=== PATIENT | female | born 1970 | race Two or more races ===

== ENCOUNTER 2017-08-21 09:42 | Emergency (ER) | payer MEDICAID, OTHER ==
[~2017-08-21] VITALS: Ht 152.4 cm; Wt 62.4 kg
[~2017-08-21 09:42] MED LIST: CEFD300C37 PO; IBUP200T49; OMEP20TA62 PO; ONDA4TAB10 PO
[2017-08-21 09:46] VITALS: BP 128/84
[2017-08-21] MEDS ORDERED: CEFTRIAXONE 1,000 MG ONE (10:56)
[2017-08-21] MEDS ORDERED: LIDOCAINE-MPF 1%, 5ML ONE (10:57)
[2017-08-21] MEDS ORDERED: CEFTRIAXONE 1,000 MG IM ONE (11:00)
== END 2017-08-21 11:12 | disposition home or self-care (01) ==
LOC: ED 11:10
DX: J02.0 Streptococcal pharyngitis (principal)
CPT/HCPCS: 96372; 99283; J0696

== ENCOUNTER 2017-10-14 18:15 | Inpatient (IN) | payer MEDICAID, OTHER ==
[~2017-10-14] VITALS: Ht 152.4 cm; Wt 55.0 kg
[2017-10-14 18:12] VITALS: BP 101/65
[2017-10-14] MEDS ORDERED: ONDANSETRON 2MG/ML, 2ML ONE (18:53)
[2017-10-14] MEDS ORDERED: HYDROmorphone 2 MG/ML, 1ML ONE (18:54)
[2017-10-14 18:56] LABS: BASOPHILS # (AUTO) 0.02 x10^3/uL (0-0.1); BASOPHILS % (AUTO) 0 % (0-1); EOSINOPHILS % (AUTO) 0 % (1-7); LYMPHOCYTES # (AUTO) 1.24 x10^3/uL (1-3.4); LYMPHOCYTES % (AUTO) 13 % (22-44); MD NO; MEAN CORPUSCULAR HEMOGLOBIN 27.9 pg (27.0-34.8); MEAN CORPUSCULAR HGB CONC 34.1 g/dL (32.4-35.8); MEAN CORPUSCULAR VOLUME 81.6 fL (80-100); MEAN PLATELET VOLUME 8.2 fL (7.4-10.4); MONOCYTES # (AUTO) 0.68 x10^3/uL (0.2-0.8); MONOCYTES % (AUTO) 7 % (2-9); NEUTROPHILS # (AUTO) 7.37 x10^3/uL (1.8-6.8); NEUTROPHILS % (AUTO) 79 % (42-75); PLATELET COUNT 234 x10^3/uL (130-400); RED CELL DISTRIBUTION WIDTH 13.3 % (9.6-15.2)
[2017-10-14] MEDS ORDERED: SODIUM CHLORIDE FLUSH 10ML SYR IVF ONE (19:00)
[2017-10-14] MEDS ORDERED: HYDROmorphone 1 MG/ML, 1ML IVPush PRN (19:00)
[2017-10-14] MEDS ORDERED: ONDANSETRON ODT 4 MG PO ONE (19:00)
[2017-10-14 19:06] LABS: ALANINE AMINOTRANSFERASE 25 U/L (12-78); ALBUMIN 3.6 g/dL (3.4-5.0); ANION GAP 8 mmol/L (5-15); CALCIUM 9.4 mg/dL (8.5-10.1); CHLORIDE 107 mmol/L (98-107)
[2017-10-14 19:09] LABS: ALKALINE PHOSPHATASE 207 U/L (45-117); BILIRUBIN,TOTAL 0.7 mg/dL (0.2-1.0); CREATININE 0.46 mg/dL (0.55-1.02)
[2017-10-14] MEDS ORDERED: ACETAMINOPHEN 500 MG TABLET ONE (19:15)
[2017-10-14] MEDS ORDERED: ACETAMINOPHEN 500 MG TABLET PO ONE (19:20)
[2017-10-14] MEDS ORDERED: ONDANSETRON 2MG/ML, 2ML IVPush ONE (19:30)
[2017-10-14 20:23] LABS: CULTURE INDICATED? YES; MICROSCOPIC INDICATED
[2017-10-14] MEDS ORDERED: hydrALAzine 20 MG/ML, 1ML IVPush PRN (21:30)
[2017-10-14] MEDS ORDERED: ONDANSETRON ODT 4 MG PO PRN (21:30)
[2017-10-14] MEDS ORDERED: morphine SULFATE 10 MG/ML, 1ML IVPush PRN (21:30)
[2017-10-14] MEDS: SODIUM CHLORIDE 0.9% 1,000 ML IV SCH (22:00)
[2017-10-14 22:05] VITALS: BP 103/64
[2017-10-14] MEDS: ENOXAPARIN 40 MG/0.4 ML SQ SCH (22:35)
[2017-10-15 01:26] VITALS: BP 104/73
[2017-10-15] MEDS ORDERED: OMNIPAQUE 350 MG/ML, 100ML BOTTLE ONE (01:57)
[2017-10-15] MEDS: SODIUM CHLORIDE 0.9% 1,000 ML IV SCH ×2 (04:23→09:42)
[2017-10-15 05:53] LABS: CHLORIDE 108 mmol/L (98-107)
[2017-10-15 06:00] LABS: ANION GAP 6 mmol/L (5-15); CALCIUM 8.6 mg/dL (8.5-10.1); CREATININE 0.33 mg/dL (0.55-1.02)
[2017-10-15 06:04] LABS: BASOPHILS # (AUTO) 0.02 x10^3/uL (0-0.1); BASOPHILS % (AUTO) 0 % (0-1); EOSINOPHILS # (AUTO) 0.01 x10^3/uL (0-0.4); EOSINOPHILS % (AUTO) 0 % (1-7); LYMPHOCYTES # (AUTO) 1.43 x10^3/uL (1-3.4); LYMPHOCYTES % (AUTO) 24 % (22-44); MD NO; MEAN CORPUSCULAR HEMOGLOBIN 27.1 pg (27.0-34.8); MEAN CORPUSCULAR HGB CONC 32.6 g/dL (32.4-35.8); MEAN CORPUSCULAR VOLUME 83.1 fL (80-100); MEAN PLATELET VOLUME 8.8 fL (7.4-10.4); MONOCYTES # (AUTO) 0.62 x10^3/uL (0.2-0.8); MONOCYTES % (AUTO) 10 % (2-9); NEUTROPHILS % (AUTO) 65 % (42-75); PLATELET COUNT 190 x10^3/uL (130-400); RED BLOOD COUNT 4.38 x10^6/uL (3.82-5.3); RED CELL DISTRIBUTION WIDTH 13.4 % (9.6-15.2)
[2017-10-15 06:37] VITALS: BP 130/74
[2017-10-15] MEDS ORDERED: MAGNESIUM SULFATE PMX 2GM/50ML 50 ML IV ONE (09:00)
[2017-10-15 14:00] VITALS: BP 101/65
[2017-10-15 14:06] LABS: CLOSTRIDIUM DIFFICILE ANTIGEN NEGATIVE; CLOSTRIDIUM DIFFICILE TOXIN NEGATIVE (Negative)
[2017-10-15] MEDS ORDERED: ACETAMINOPHEN 500 MG TABLET ONE (15:41)
[2017-10-15] MEDS: ACETAMINOPHEN 500 MG TABLET PO PRN (15:42)
[2017-10-15 18:41] VITALS: BP 107/65
[2017-10-15] MEDS: ENOXAPARIN 40 MG/0.4 ML SQ SCH (23:08)
[2017-10-16 01:03] VITALS: BP 126/82
[2017-10-16] MEDS: SODIUM CHLORIDE 0.9% 1,000 ML IV SCH (06:17)
[2017-10-16 07:17] VITALS: BP 123/82
[2017-10-16 12:40] VITALS: BP 124/80
[2017-10-16] MEDS: ACETAMINOPHEN 500 MG TABLET PO PRN (13:37)
[2017-10-16] MEDS ORDERED: MAGNESIUM SULFATE PMX 2GM/50ML 50 ML IV ONE (15:30)
[2017-10-16] MEDS: SULFAMETH./TRIMETHOPRIM DS 800MG/160MG TABLET PO SCH ×2 (16:07→21:30)
[2017-10-16 19:07] VITALS: BP 118/77
[2017-10-16] MEDS: ENOXAPARIN 40 MG/0.4 ML SQ SCH (21:30)
[2017-10-17 01:45] VITALS: BP 104/66
[2017-10-17 07:12] VITALS: BP 111/68
[2017-10-17] MEDS: SULFAMETH./TRIMETHOPRIM DS 800MG/160MG TABLET PO SCH (09:25)
[2017-10-17] MEDS ORDERED: SULF-169 PO (12:31)
== END 2017-10-17 13:15 | disposition home or self-care (01) | DRG 390 ==
LOC: ED 20:23 → EDIP 20:28 → ED 20:32 → 3NW 21:46
PROVIDERS: ADMIT Hospitalist; ATTEND Hospitalist
DX: K56.51 Intestinal adhesions [bands], with partial obstruction (principal); E83.42 Hypomagnesemia; E86.9 Volume depletion, unspecified; Z80.3 Family history of malignant neoplasm of breast; Z83.3 Family history of diabetes mellitus; Z87.442 Personal history of urinary calculi; Z90.710 Acquired absence of both cervix and uterus; G43.909 Migraine, unspecified, not intractable, without status migrainosus; R31.9 Hematuria, unspecified
CPT/HCPCS: 36415; 74177; 80048; 80053; 81001; 83690; 83735; 84100; 85025; 87077; 87086; 87186; 87324; 96374; 96375; J1170; J1650; J2405; Q0162; Q9967; J2270; J3475; J7030